=== PATIENT | female | born 1965 | race Caucasian/White ===

== ENCOUNTER 2024-01-09 16:20 | Emergency (ER) | payer OTHER, SELFPAY ==
[2024-01-09 16:24] VITALS: BP 177/87
[2024-01-09 16:56] LABS: % Basophils 0.7 % (0-2); % Eosinophils 0.8 % (0-6); % Immature Granulocytes 0.4 % (0-0.5); % Lymphocytes 8.9 % (20.5-51.1); % Monocytes 5.8 % (1.7-9.3); % Neutrophils 83.4 % (42.2-75.2); Absolute Basophils 0.1 10^3/uL (0-0.2); Absolute Eosinophils 0.1 10^3/uL (0-0.7); Absolute Lymphocytes 0.8 10^3/uL (1.2-3.4); Absolute Monocytes 0.5 10^3/uL (0.1-0.6); Absolute Neutrophils 7.5 10^3/uL (1.4-6.5); Hematocrit 47.7 % (37.0-47.0); Hemoglobin 15.9 g/dL (12.0-16.0); Mean Corp Hgb Conc. 33.3 g/dL (33.0-37.0); Mean Corpuscular Hgb 29.8 pg (27.0-31.0); Mean Corpuscular Volume 89.3 fL (81.0-99.0); Mean Platelet Volume 11.9 fL (7.4-10.4); Nucleated Red Blood Cells % 0 %; Platelet Count 220 10^3/uL (130-400); Red Blood Cell Count 5.34 10^6/uL (4.20-5.40); Red Cell Dist. Width 14.4 % (11.5-14.5)
[2024-01-09 16:58] LABS: ALT (SGPT) 32 U/L (0-35); AST (SGOT) 33 U/L (14-36); Albumin 4.2 g/dl (3.5-5.0); Alkaline Phosphatase 158 U/L (38-126); Blood Urea Nitrogen 14 mg/dl (7-17); Calcium 9.7 mg/dl (8.4-10.2); Carbon Dioxide 21 mmol/L (22-30); Chloride 106 mmol/L (98-107); Glucose 150 mg/dl (70-99); Potassium 4.4 mmol/L (3.5-5.1); Sodium 140 mmol/L (135-145); Total Bilirubin 0.9 mg/dl (0.2-1.3); eGFR > 60.00
[2024-01-09 16:59] LABS: Lipase 191 U/L (23-300)
--- NOTE | 2024-01-09 17:29 | ED.GENMED ---
History of Present Illness
General
Chief Complaint: Abdominal Symptoms
Source: patient and spouse
Time Seen by Provider: 01/09/24 17:13
Nursing documentation reviewed up to this point in time: agreed with
Travel History
Have you had any contact with someone who has COVID-19?: No
Do you have any symptoms of coronavirus? Fever > 100 degrees, chills, cough, shortness of breath, sore throat, loss of taste or smell, muscle aches, or headache?: No
History of Present Illness
History of Present Illness:
58 yo female with h/o sarcoidosis, HLD, Hypothyroid, IDDM, Fibromyalgia, arthritis, IBS presents stating she's been belching a lot past 2 days 'like rotten eggs.' Small amount of diarrhea yesterday and today more than 10 times non bloody diarrhea
with cramps across lower abdomen. Pain now 5/10, comes in waves. Vomited 3 x today, last was 2 hours ago. No recent travel, no known sick contacts. Denies fever, SOB, CP.
Meds
modafinil 150 mg
Budesonide formoterol 80�4 0.5 inhaler
Clonazepam 0.5 as needed
Cymbalta 20 mg daily
Famotidine 20 mg daily
Furosemide 20 mg daily
Humalog KwikPen 100 units/mL pen injector
Lantus Solostar 100 units/mL pen injection
Mounjaro 10 mg / 0.5 mL is OPN
Naproxen to 50 mg
Pregabalin 150 mg
Prevacid p.o. daily
Synthroid 1 1 2 mcg daily
Trazodone HCl p.o.
Past History
Past History
ED Past Medical History: Fibromyalgia, Hypercholesterolemia, IDDM, Hypothyroidism, Psychiatric (anxiety, depression) and Other (sarcoidosis)
ED Past Surgical History: Gynecological and Orthopedic
Social History
Tobacco: Non-smoker
Personal:
Living: with family
Review of Systems
Review of Systems
Allergies reviewed?: Yes
All Other Systems: ROS reviewed and negative except as documented in HPI and ROS
Constitutional: Denies fever
Respiratory: Denies trouble breathing
Cardiac: Denies chest pain
ABD/GI: Reports abdominal pain, nausea, vomiting, diarrhea and other (belching w rotten eggs odor); Denies bloody stools or black stools
: Denies dysuria, frequency, difficulty voiding or urgency
Musculoskeletal: Reports no symptoms
Skin: Reports no symptoms
Neurological: Reports no symptoms
Phy Exam
Physical Exam
Physical Exam:
GENERAL: No acute distress. A&Ox3.
CONSTITUTIONAL: Afebrile.
EYES: PERRL, conjunctivae normal
ENMT: moist mucus membranes, Pharynx nl
RESPIRATORY: Regular respirations, nonlabored, lungs clear.
CARDIOVASCULAR: Regular rate and rhythm, no murmurs, no rubs.
GI: Soft, obese, generally tender to palpation. normal BS
MUSCULOSKELETAL: Moves with ease. Well perfused.
SKIN: Warm, dry, pink
PSYCH: Normal mood and affect. Well kept, interactive and appropriate
NEUROLOGIC: Awake, alert and oriented. No focal neurological deficits
Course
Orders/Labs/Results
Orders:
Orders
01/09/24 16:36
Complete Blood Count/With Diff Urgent
Comprehensive Metabolic Panel Urgent
Lipase Urgent
01/09/24 17:29
CT Abd/Pel (IV only)-DH only Urgent
Comment:
Reason For Exam: Lower abdominal pain, diarrhea, cramping
01/09/24 17:32
HYDROmorphone [Dilaudid] 0.5 mg IV NOW STA
Ondansetron Injectable [Zofran] 4 mg IV NOW STA
01/09/24 20:19
Amoxicillin 875 mg/Clav 125 mg [Augmentin 875 mg/125 mg] 1 tablet PO NOW STA
Abnormal Lab Results
01/09/24
16:36
Hct 47.7 H %
(37.0-47.0)
MPV 11.9 H fL
(7.4-10.4)
Absolute Neuts (auto) 7.5 H 10^3/uL
(1.4-6.5)
Absolute Lymphs (auto) 0.8 L 10^3/uL
(1.2-3.4)
Neutrophils % 83.4 H %
(42.2-75.2)
Lymphocytes % 8.9 L %
(20.5-51.1)
Carbon Dioxide 21 L mmol/L
(22-30)
Glucose 150 H mg/dl
(70-99)
Alkaline Phosphatase 158 H U/L
(38-126)
01/09/24 16:36
01/09/24 16:36
Vital Signs
Initial and Last Documented VS:
Initial Vital Signs
Temp Pulse Resp BP Pulse Ox
98.3 F 103 20 177/87 99
01/09/24 16:24 01/09/24 16:24 01/09/24 16:24 01/09/24 16:24 01/09/24 16:24
Last Documented Vital Signs
Temp Pulse Resp BP Pulse Ox
98.3 F 78 18 134/71 95
01/09/24 16:24 01/09/24 18:15 01/09/24 18:15 01/09/24 18:00 01/09/24 18:15
MDM/Problems Addressed
Differential Diagnosis Includes:
Colitis, diverticulitis, Gastroenteritis
Side effect of medication (Mounjaro)
MDM/Problems Addressed:
58 yo female with h/o sarcoidosis, IDDM, Fibromyalgia, arthritis, IBS presents stating she's been belching a lot past 2 days 'like rotten eggs.' Small amount of diarrhea yesterday and today more than 10 times non bloody diarrhea with cramps across
lower abdomen. Pain now 5/10, comes in waves. Vomited 3 x today, last was 2 hours ago. No recent travel, no known sick contacts. Denies fever, SOB, CP.
Afebrile, NAD
5:00 PM
CMP normal
CBC normal
8:[address] abdomen pelvis with IV contrast: Some mild thickening of the wall of the segments throughout the colon cannot be excluded such as colitis.
IMPRESSION:
Evaluation of intestinal tract markedly limited without oral contrast and with majority of colon predominantly empty/decompressed. Cannot exclude colitis. No intestinal obstruction, free air or focal right lower quadrant inflammatory changes.
No findings to suggest obstructive uropathy bilaterally.
Pt feeling better after IVFs and pain medication.
Tolerating melissa naveed and crackers.
Pt tells me she has been on Mounjaro 10 mg for about 10 months, started at 2.5 mg then increased to 10 mg. It has been out of stock for the past 3 weeks and then just got a 10 mg injection 3 days ago after having no weekly injection for 3 weeks.
Afebrile, melissa labs, no diarrhea since arrival, now that I know about the Mounjaro, will hold off on antibiotics, do not suspect bacterial infection
The change in Mounjaro schedule and dose may very well be causing her symptoms as diarrhea this is a common side effect. Also eructation, flatulence and abdominal pain.
Will f/u with her [facility] [facility] in 4 days after the holiday weekend to discuss the Mounjaro.
Pt agrees and is comfortable with plan
*Critical Care Note
Total Time (30-74mins, 75-104mins- exclusive of procedures): Not Applicable
ED Attending Note
-
Portions of this chart may have been created with voice recognition software.� Occasional wrong word or��sound alike� substitutions may have occurred due to the inherent limitations of voice recognition software.
Discharge Plan
Departure
Patient Disposition: Home (Routine Discharge)
Date of Disposition: 01/09/24
Time of Disposition: 20:45
Patient with high blood pressure during this ER visit?: No
Condition: Good
Discharge Problem:
Medication side effect, Diarrhea, Abdominal pain
Instructions: Diarrhea in teens and adults, Abdominal Pain
Prescriptions:
No Action
trazodone 100 MG tablet
200 mg PO HS
clonazepam 0.5 MG tablet
0.5 mg PO HS
Patient Comments:
01/15/2023: last filled 11/26/22, 30 tabs for 30 days from [facility]
atorvastatin 20 mg tablet
20 mg PO HS
aspirin 81 mg Tablet,Delayed Release (Dr/Ec)
81 mg PO DAILY
famotidine 20 mg tablet
20 mg PO HS
omeprazole 20 mg capsule,delayed release(DR/EC)
20 mg PO DAILY@1200
folic acid 1 mg tablet
1 mg PO DAILY
levothyroxine 112 mcg tablet
112 mcg PO DAILY
insulin lispro [Humalog KwikPen Insulin] 100 unit/mL insulin pen
22 - 40 sliding scale dose SC AC
duloxetine 20 mg capsule,delayed release(DR/EC)
40 mg PO HS
pregabalin 200 mg capsule
200 mg PO HS
Patient Comments:
01/15/2023: last filled 01/03/23, 90 tabs for 90 days from [facility]
insulin glargine [Lantus Solostar U-100 Insulin] 100 unit/mL (3 mL) insulin pen
33 unit SC DAILY
insulin glargine [Lantus Solostar U-100 Insulin] 100 unit/mL (3 mL) insulin pen
36 unit SC HS
Referrals:
Your, [employer] [facility] [Other] - Follow up in 5-7 days
NONE,* [Active] -
Activity Restrictions/Additional Instructions:
As we discussed, your symptoms are most likely due to the Mounjaro dose changes.
Contact you [facility] [facility] Friday to discuss the dosing
You may take Imodium if diarrhea persists
Interventions
Interventions:
*Risk Screen - Suicide Last Done: 01/09/24 17:35
*General Assessment Last Done: 01/09/24 17:35
*Neglect/Abuse Screening Last Done: 01/09/24 17:35
ED- Fall Risk Assessment Last Done: 01/09/24 17:35
*ED COVID-19 Vaccine History Last Done: 01/09/24 17:35
RB-Bhdlla-Opzrnpeysk Assessment Last Done: 01/09/24 17:35
Discharge Date and Time
Print Language: SAUDI ARABIAN
[2024-01-09 17:35] VITALS: BMI 27.7
[2024-01-09 17:36] VITALS: BP 151/68
[2024-01-09] MEDS: DILAUDID 0.5 MG IV (17:41)
[2024-01-09] MEDS: ZOFRAN 4 MG IV (17:41)
[2024-01-09 18:00] VITALS: BP 134/71
== END 2024-01-09 21:17 | disposition home or self-care (01) ==
LOC: EMR 16:20
PROVIDERS: EMERGENCY PHYSICIAN Emergency Medicine; FAMILY PHYSICIAN Family Medicine
DX: R19.7 Diarrhea, unspecified (principal); R10.9 Unspecified abdominal pain; T50.905A Adverse effect of unspecified drugs, medicaments and biological substances, initial encounter; E11.9 Type 2 diabetes mellitus without complications; E78.00 Pure hypercholesterolemia, unspecified; E03.9 Hypothyroidism, unspecified
CPT/HCPCS: 99285; 96374; 96375; 74177; 80053; 83690; 85025; Q9967

== ENCOUNTER 2024-07-17 20:12 | Emergency (ER) | payer OTHER, SELFPAY ==
[2024-07-17 20:14] VITALS: BP 152/105
--- NOTE | 2024-07-17 20:36 | ED.GENMED ---
History of Present Illness
General
Chief Complaint: Visual Problem
Time Seen by Provider: 07/17/24 20:26
History of Present Illness
History of Present Illness:
58-year-old female with history of insulin-dependent diabetes presents to the emergency department for evaluation of left eye pain that has been gradually worsening throughout the day today. She was diagnosed with acute sinusitis and placed on
amoxicillin 5 days ago, states she had mild eye pain over the past 24 hours but today it has become excruciating. She reports nausea with no vomiting or diarrhea. Denies photophobia, diplopia, or vision changes. Does have mild eye pain with
movement of the eye. No chest pain or shortness of breath. Does not wear corrective lenses.
Past History
Past History
ED Past Medical History: Fibromyalgia, Hypercholesterolemia, IDDM, Hypothyroidism, Psychiatric (anxiety, depression) and Other (sarcoidosis)
ED Past Surgical History: Gynecological and Orthopedic
Social History
Tobacco: Non-smoker
Personal:
Living: with family
Review of Systems
Review of Systems
Allergies reviewed?: Yes
All Other Systems: ROS reviewed and negative except as documented in HPI and ROS
Phy Exam
Physical Exam
Physical Exam:
GEN: Well appearing, NAD, WDWN
HEENT: Oral mucosa moist, no scleral icterus. No obvious conjunctival injection or hyperemia, no periorbital edema noted. Extraocular motions are intact however patient does report pain with lateral gaze. No eye discharge. No preauricular
adenopathy bilaterally. No nasal discharge
Cardiac: Regular rate
Lung: No respiratory distress, no tachypnea
MSK: No gross deformity or injuries
Skin: Good color, no pallor or jaundice, no rashes
Neuro: AO x3, moves all extremities freely
Psych: Calm, cooperative
Course
Orders/Labs/Results
Orders:
Orders
07/17/24 20:34
CT Orbits With Iv Contrast Urgent
Comment:
Reason For Exam: L orbital pain/sinusitis
Ketorolac [Toradol] 15 mg IV NOW STA
07/17/24 20:41
Complete Blood Count/With Diff Urgent
Comprehensive Metabolic Panel Urgent
07/17/24 22:37
Acetaminophen [Tylenol] 1,000 mg PO NOW STA
Abnormal Lab Results
07/17/24
20:41
MPV 11.4 H fL
(7.4-10.4)
Absolute Neuts (auto) 6.6 H 10^3/uL
(1.4-6.5)
Absolute Monos (auto) 0.9 H 10^3/uL
(0.1-0.6)
Lymphocytes % 17.9 L %
(20.5-51.1)
Monocytes % 9.9 H %
(1.7-9.3)
BUN 20 H mg/dl
(7-17)
Creatinine 1.1 H mg/dL
(0.6-1.0)
Glucose 124 H mg/dl
(70-99)
AST 55 H U/L
(14-36)
ALT 52 H U/L
(0-35)
Alkaline Phosphatase 143 H U/L
(38-126)
07/17/24 20:41
07/17/24 20:41
Vital Signs
Initial and Last Documented VS:
Initial Vital Signs
Temp Pulse Resp BP Pulse Ox
98.2 F 67 16 152/105 98
07/17/24 20:14 07/17/24 20:14 07/17/24 20:14 07/17/24 20:14 07/17/24 20:14
Last Documented Vital Signs
Temp Pulse Resp BP Pulse Ox
98.2 F 67 16 152/105 98
07/17/24 20:14 07/17/24 20:14 07/17/24 20:14 07/17/24 20:14 07/17/24 20:14
MDM/Problems Addressed
MDM/Problems Addressed:
Unclear etiology to eye pain. It did improve after Toradol. Imaging shows no evidence of periorbital abscess. Normal IOP and visual acuity. Labs are reassuring, recommend NSAIDs and acetaminophen with outpatient Ortho follow-up if symptoms
worsen.
*Critical Care Note
Total Time (30-74mins, 75-104mins- exclusive of procedures): Not Applicable
Update Note
Update Note:
Patient reexamined, pain improving after IV ketorolac. Intraocular pressure of 9, no focal fluorescein stain uptake, awaiting CT
ED Attending Note
-
Portions of this chart may have been created with voice recognition software.� Occasional wrong word or��sound alike� substitutions may have occurred due to the inherent limitations of voice recognition software.
Discharge Plan
Departure
Patient Disposition: Home (Routine Discharge)
Date of Disposition: 07/17/24
Time of Disposition: 22:37
Patient with high blood pressure during this ER visit?: No
Discharge Problem:
Acute left eye pain
Instructions: Headache, Adult (DC)
Prescriptions:
No Action
trazodone 100 MG tablet
200 mg PO HS
clonazepam 0.5 MG tablet
0.5 mg PO HS
Patient Comments:
01/15/2023: last filled 11/26/22, 30 tabs for 30 days from [facility]
atorvastatin 20 mg tablet
20 mg PO HS
aspirin 81 mg Tablet,Delayed Release (Dr/Ec)
81 mg PO DAILY
famotidine 20 mg tablet
20 mg PO HS
omeprazole 20 mg capsule,delayed release(DR/EC)
20 mg PO DAILY@1200
folic acid 1 mg tablet
1 mg PO DAILY
levothyroxine 112 mcg tablet
112 mcg PO DAILY
insulin lispro [Humalog KwikPen Insulin] 100 unit/mL insulin pen
22 - 40 sliding scale dose SC AC
duloxetine 20 mg capsule,delayed release(DR/EC)
40 mg PO HS
pregabalin 200 mg capsule
200 mg PO HS
Patient Comments:
01/15/2023: last filled 01/03/23, 90 tabs for 90 days from [facility]
insulin glargine [Lantus Solostar U-100 Insulin] 100 unit/mL (3 mL) insulin pen
33 unit SC DAILY
insulin glargine [Lantus Solostar U-100 Insulin] 100 unit/mL (3 mL) insulin pen
36 unit SC HS
Referrals:
Merry Braun MD [Family Provider] -
Activity Restrictions/Additional Instructions:
The cause of your pain is not clear at this time. Please take 600 mg of [id number] ibuprofen every 6 hours in addition to Tylenol for pain relief. Follow-up with your primary care doctor if symptoms worsen
Interventions
Interventions:
*Risk Screen - Suicide Last Done: 07/17/24 20:14
*Neglect/Abuse Screening Last Done: 07/17/24 20:14
ED- Neurological Assessment Last Done: 07/17/24 20:47
ED-EENT Assessment Last Done: 07/17/24 20:56
Discharge Date and Time
Print Language: WOLOF
[2024-07-17] MEDS: TORADOL 15 MG IV (20:42)
[2024-07-17 20:49] LABS: % Basophils 0.6 % (0-2); % Eosinophils 1.7 % (0-6); % Immature Granulocytes 0.4 % (0-0.5); % Lymphocytes 17.9 % (20.5-51.1); % Monocytes 9.9 % (1.7-9.3); % Neutrophils 69.5 % (42.2-75.2); Absolute Basophils 0.1 10^3/uL (0-0.2); Absolute Eosinophils 0.2 10^3/uL (0-0.7); Absolute Lymphocytes 1.7 10^3/uL (1.2-3.4); Absolute Monocytes 0.9 10^3/uL (0.1-0.6); Absolute Neutrophils 6.6 10^3/uL (1.4-6.5); Hematocrit 44.9 % (37.0-47.0); Hemoglobin 15.1 g/dL (12.0-16.0); Mean Corp Hgb Conc. 33.6 g/dL (33.0-37.0); Mean Corpuscular Hgb 30.9 pg (27.0-31.0); Mean Corpuscular Volume 91.8 fL (81.0-99.0); Mean Platelet Volume 11.4 fL (7.4-10.4); Nucleated Red Blood Cells % 0 %; Platelet Count 209 10^3/uL (130-400); Red Blood Cell Count 4.89 10^6/uL (4.20-5.40); Red Cell Dist. Width 13.7 % (11.5-14.5); White Blood Cell Count 9.5 10^3/uL (4.8-10.8)
[2024-07-17 21:04] LABS: ALT (SGPT) 52 U/L (0-35); AST (SGOT) 55 U/L (14-36); Albumin 3.9 g/dl (3.5-5.0); Alkaline Phosphatase 143 U/L (38-126); Blood Urea Nitrogen 20 mg/dl (7-17); Calcium 9.3 mg/dl (8.4-10.2); Carbon Dioxide 30 mmol/L (22-30); Chloride 103 mmol/L (98-107); Glucose 124 mg/dl (70-99); Potassium 4.4 mmol/L (3.5-5.1); Sodium 140 mmol/L (135-145); Total Bilirubin 0.5 mg/dl (0.2-1.3); Total Protein 6.3 g/dl (6.3-8.2); eGFR 57.88
[2024-07-17] MEDS: TYLENOL 1000 MG PO (22:41)
[2024-07-17 22:42] VITALS: BP 140/69
== END 2024-07-17 22:47 | disposition home or self-care (01) ==
LOC: EMR 20:12
PROVIDERS: Physician Assistant; EMERGENCY PHYSICIAN Emergency Medicine; FAMILY PHYSICIAN Family Medicine
DX: H57.12 Ocular pain, left eye (principal); R11.0 Nausea; J01.90 Acute sinusitis, unspecified; E11.9 Type 2 diabetes mellitus without complications; E78.00 Pure hypercholesterolemia, unspecified; E03.9 Hypothyroidism, unspecified; F32.A Depression, unspecified; F41.9 Anxiety disorder, unspecified; M79.7 Fibromyalgia; D86.9 Sarcoidosis, unspecified; Z79.4 Long term (current) use of insulin; Z79.82 Long term (current) use of aspirin; Z88.8 Allergy status to other drugs, medicaments and biological substances; Z91.040 Latex allergy status
CPT/HCPCS: 99284; 96374; 70481; 80053; 85025; Q9967

== ENCOUNTER → 2024-07-21 10:11 | Outpatient (REF) | payer OTHER, SELFPAY | LOC: HWWDC 10:11 | PROVIDERS: ATTENDING PHYSICIAN Family Medicine; REFERRING PHYSICIAN Obstetrics & Gynecology Gynecology | DX: Z12.31 Encounter for screening mammogram for malignant neoplasm of breast (principal) | CPT/HCPCS: 77063; 77067 ==

== ENCOUNTER 2024-09-10 06:12 | Day surgery (SDC) | payer OTHER, SELFPAY ==
[2024-09-10 09:02] LABS: Glucose - Point of Care 155 mg/dl (70-99)
== END 2024-09-10 10:31 | disposition home or self-care (01) ==
LOC: GI 06:12
PROVIDERS: ATTENDING PHYSICIAN Specialist
DX: R10.13 Epigastric pain (principal); R14.2 Eructation; K31.89 Other diseases of stomach and duodenum; K21.00 Gastro-esophageal reflux disease with esophagitis, without bleeding
CPT/HCPCS: 43239; 88305; 82962; 88342

== ENCOUNTER → 2024-11-18 12:18 | Outpatient (REF) | payer OTHER, SELFPAY | LOC: HWRAD 12:18 | PROVIDERS: ATTENDING PHYSICIAN Anesthesiology; FAMILY PHYSICIAN Family Medicine | DX: M54.12 Radiculopathy, cervical region (principal); M54.16 Radiculopathy, lumbar region | CPT/HCPCS: 72040; 72100 ==

== ENCOUNTER → 2024-11-22 13:25 | Outpatient (REF) | payer OTHER, SELFPAY | LOC: HWRAD 13:25 | PROVIDERS: FAMILY PHYSICIAN Family Medicine | DX: D86.9 Sarcoidosis, unspecified (principal) | CPT/HCPCS: 71250 ==

== ENCOUNTER → 2025-07-13 08:56 | Outpatient (REF) | payer OTHER, SELFPAY | LOC: HWRAD 08:56 | PROVIDERS: ATTENDING PHYSICIAN Internal Medicine Hematology & Oncology; FAMILY PHYSICIAN Family Medicine | DX: R91.8 Other nonspecific abnormal finding of lung field (principal) | CPT/HCPCS: 76700 ==